=== PATIENT | female | born 1990 | race Caucasian/White ===

== ENCOUNTER 2018-10-05 16:57 | Emergency (ER) | payer OTHER ==
[~2018-10-05] VITALS: Ht 160 cm; Wt 91.3 kg
[2018-10-05 17:19] VITALS: Ht 160 cm; Wt 91.3 kg
[2018-10-05 17:52] LABS: microscopic required? NO
[2018-10-05 18:10] LABS: UA SPECIFIC GRAVITY 1.015 (1.005-1.035); urine erythrocyte NEGATIVE (NEGATIVE)
[2018-10-05 18:46] VITALS: BP 131/79
== END 2018-10-05 18:46 | disposition home or self-care (01) ==
LOC: ED 16:57
PROVIDERS: Emergency Medicine
DX: R10.2 Pelvic and perineal pain (principal); G89.29 Other chronic pain; J45.909 Unspecified asthma, uncomplicated; N80.9 Endometriosis, unspecified; N83.209 Unspecified ovarian cyst, unspecified side; N73.9 Female pelvic inflammatory disease, unspecified; Z88.0 Allergy status to penicillin; Z88.6 Allergy status to analgesic agent
CPT/HCPCS: J2270